=== PATIENT | male | born 1935 | race Caucasian/White ===

== ENCOUNTER 2024-05-26 13:40 | Emergency (ER) | payer MEDICARE, SELFPAY ==
--- NOTE | ~2024-05-26 | XR_ITS ---
EXAMINATION: XR knee LT 3V DATE: 05/26/2024 16:41 INDICATION: Ground-level fall. TECHNIQUE: 3 views of left knee were obtained. COMPARISON: None. FINDINGS: There is a medial compartment arthroplasty in near-anatomic alignment. No fracture. No alicja prosthetic lucency to suggest is a infection. There is mild osteoarthritis of lateral and patellofemo ral compartments characterized by marginal osteophytes. No knee joint effusion. IMPRESSION: 1. 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 2. Mild left knee osteoarthritis. Reviewed, dictated and finalized at location A. ING DEPARTMENT SUPERVISOR
--- NOTE | ~2024-05-26 | XR_ITS ---
EXAMINATION: [id number] DATE: 05/26/2024 16:41 INDICATION: Ground-level fall. TECHNIQUE: A frontal view of the chest and 2 views on 3 radiographs of the right ribs were obtained. COMPARISON: Chest 2 views 12/27/2009 FINDINGS: There is mild atelectasis in the lower lung zones. No pleural effusion or pneumothorax. The heart size is normal. IMPRESSION: 1. No rib fracture. Reviewed, dictated and finalized at location A. NESS INTELLIGENCE DEVELOPER IMPRESSION: 1. No rib fracture.
--- NOTE | ~2024-05-26 | XR_ITS ---
XR elbow RT min 3V Ordering provider: Zaheer Cutler APRN History: . ground level fall . Comparison: None. FINDINGS: BONES: Elevation of the anterior fat pad is seen which may indicate a fracture in the lumbar area oth erwise lucencies possibly seen in the radial head. Follow-up advised. JOINT SPACES: Normal. SOFT TISSUES: Unremarkable. No definite joint effusion. IMPRESSION: Elevation of the anterior fat pad which may indicate a fracture in the elbow area. Possible lucency i n the radial head. Follow-up advised.. Reviewed, dictated and finalized at location A. HERAPIST IMPRESSION: Elevation of the anterior fat pad which may indicate a fracture in the elbow ar ea. Possible lucency in the radial head. Follow-up advised..
--- NOTE | ~2024-05-26 | XR_ITS ---
EXAMINATION: XR shoulder RT min 2V DATE: 05/26/2024 16:41 INDICATION: Fall. TECHNIQUE: 3 views of right shoulder were obtained. COMPARISON: None. FINDINGS: Alignment is normal. No fracture. 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 IMPRESSION: 1. Polyarticular osteoarthritis. Reviewed, dictated and finalized at location A. [employer]
--- NOTE | ~2024-05-26 | XR_ITS ---
XR knee RT 3V Ordering provider: Zaheer Cutler APRN History: . ground level fall . Comparison: None. FINDINGS: BONES: No acute fracture or dislocation. Hemiarthroplasty is seen medially. JOINT SPACES: Normal. SOFT TISSUES: Normal. IMPRESSION: No acute osseous abnormality right knee. Hemiarthroplasty seen medially. Reviewed, dictated and finalized at location A. NG DEALER
[2024-05-26 13:50] VITALS: BP 148/89; PULSE 77; RESP 17; TEMP 36.6; O2SAT 97
--- NOTE | 2024-05-26 15:00 | ED.FALL ---
HPI - Fall General Chief Complaint: Fall Stated Complaint: fall Time Seen by Provider: 05/26/24 15:01 88 y/o male presents after sustaining a ground level fall sunday night around midnight. patient denies hitting head or LOC. patient c/o bilateral knee pain, right rib/elbow pain and left shoulder pain. patient ambulatory with walker in triage History of Present Illness HPI Narrative: See MSE Onset (ago): day(s) (3) Fall from: standing Fall witnessed: no Place fall occurred: home Loss of consciousness: none Prolonged down time: hour(s) Symptoms prior to fall: none Location of injury - extremities: Right: shoulder, elbow and knee Related Data Home Medications ?Medication ?Instructions ?Recorded ?Confirmed ?Last Taken ?Type allopurinol 300 mg tablet 300 mg PO DAILY 11/20/22 Unknown History aspirin 81 mg tablet,delayed 81 mg PO DAILY 11/20/22 Unknown History release carvedilol 6.25 mg tablet 6.25 mg PO Q12H 11/20/22 Unknown History enalapril maleate 10 mg tablet 15 mg PO BID 11/20/22 Unknown History furosemide 20 mg tablet 20 mg PO QAM 11/20/22 Unknown History omega-3 fatty acids 1,000 mg 1,000 mg PO DAILY 11/20/22 Unknown History capsule Allergies Allergy/AdvReac Type Severity Reaction Status Date / Time No Known Allergies Allergy Verified 05/26/24 13:41 Review of Systems Review of Systems: All systems reviewed & are unremarkable except as noted in HPI and below Musculoskeletal: Musculoskeletal: Reports arthralgias PMFSH Social History Social History (Updated 11/20/22 @ 10:44 by Qiana Guzman MA) Smoking status: Never smoker Alcohol intake: unknown Substance use: unknown Lack of Transportation: No Lack of Food: Never True Current Housing: I Have Housing Concerned About Future Housing: No Difficulty Paying Gas/Electric Bills: No Difficulty Paying for Meds: No Currently Unemployed: No Education: High School Diploma/GED Difficulty w/ Childcare or Family Care: No Gender identity (if verbalized by the patient): Male Exam Narrative: GENERAL: Well-appearing, well-nourished, and in no acute distress. HEAD: Normocephalic, atraumatic. EYES: PERRLA and EOMI. ENT: Nares clear, no rhinorrhea or epistaxis. Mucous membranes moist. NECK: Supple. CHEST: Clear to auscultation. No respiratory distress. Right lower ribs HEART: Regular rate and rhythm. No murmur heard. Normal peripheral pulses. ABDOMEN: Soft, nontender, nondistended, normal active bowel sounds. EXTREMITIES: Normal range of motion. No edema. Tenderness to bilateral anterior knee, tenderness to right lateral shoulder, SKIN: Warm, dry, no rash. NEURO: No focal deficits. Alert and oriented x3. PSYCH: Normal mood and affect. Course Vital Signs Vital signs: Vital Signs Temperature 36.6 C 05/26/24 13:50 Pulse Rate 77 05/26/24 13:50 Respiratory Rate 17 05/26/24 13:50 Blood Pressure 148/89 H 05/26/24 13:50 Pulse Oximetry 97 05/26/24 13:50 Oxygen Delivery Room Air 05/26/24 13:50 Temperature 36.6 C 05/26/24 13:50 Pulse Rate 77 05/26/24 13:50 Respiratory Rate 17 05/26/24 13:50 Blood Pressure 148/89 H 05/26/24 13:50 Pulse Oximetry 97 05/26/24 13:50 Oxygen Delivery Room Air 05/26/24 13:50 MDM - Fall MDM Narrative Medical decision making narrative: Imaging negative for any acute fracture. Elbow has a lucency. patient has orthopedic. patient uses a walker to ambulate. patient has minimal pain with movement and is a fall risk. patient instructed to f/u with orthopedic. patient is established Differential Diagnosis Differential diagnosis: Likely other (fracture vs contusion) Medical Records Medical records narrative: fx vs contusion Discharge Plan Discharge Clinical Impression: Fall on same level, Acute bilateral knee pain, Contusion of rib on right side Patient Disposition: Home, Self-Care Condition: Stable Instructions: Antibiotic Form, Contusion in Adults (ED) Additional Instructions: TAKE TYLENOL FOR PAIN FOLLOW-UP WITH ORTHOPEDIC NEEDED Patient Language: Tamazight Prescriptions: No Action omega-3 fatty acids 1,000 mg capsule 1,000 mg PO DAILY allopurinol 300 mg tablet 300 mg PO DAILY aspirin 81 mg tablet,delayed release (DR/EC) 81 mg PO DAILY furosemide 20 mg tablet 20 mg PO QAM enalapril maleate 10 mg tablet 15 mg PO BID carvedilol 6.25 mg tablet 6.25 mg PO Q12H Rx Instructions: must administer with a meal/food Follow-up/Referrals: Jacinto,Richie Alaniz MD [Primary Care Provider] - 1 Week Time of Disposition: 17:09
== END 2024-05-26 17:23 | disposition home or self-care (01) ==
PROVIDERS: Emergency Provider Nurse Practitioner Family; PCP Internal Medicine
DX: S20.211A Contusion of right front wall of thorax, initial encounter (principal); S89.92XA Unspecified injury of left lower leg, initial encounter; S89.91XA Unspecified injury of right lower leg, initial encounter; Z79.82 Long term (current) use of aspirin; Z79.899 Other long term (current) drug therapy; Z96.653 Presence of artificial knee joint, bilateral; M17.12 Unilateral primary osteoarthritis, left knee; M19.011 Primary osteoarthritis, right shoulder; R93.6 Abnormal findings on diagnostic imaging of limbs; W19.XXXA Unspecified fall, initial encounter
CPT/HCPCS: 71101; 73030; 73080; 73562; 99284